=== PATIENT | male | born 1935 | race Caucasian/White ===

== ENCOUNTER → 2017-03-17 | Day surgery (SDC) | payer OTHER ==
[~2017-03-17] VITALS: Ht 182.9 cm; Wt 86.0 kg
[~2017-03-17] MED LIST: ACETAMINOPHEN 325 MG TAB PO PRN; AMX500 PO; ASPCH81; ASPI1CHW12 PO; ATROPINE SULFATE 0.1 MG/ML 5ML SYR IV PRN; CRS10 PO; DIAZEPAM 5MG TAB ONE; GLC/500 PO; HYDC25 PO; LISI1TAB3 PO; METO50TA16 PO; NXMUNK; SODIUM CHLORIDE 0.9% 1000ML 1,000 ML IV SCH; SODIUM CHLORIDE 0.9% 1000ML 250 ML IV PRN
[2017-03-17 07:40] VITALS: Ht 182.9 cm; Wt 86.0 kg
[2017-03-17 07:41] VITALS: BP 164/79; PULSE 57; TEMP 36.5; O2SAT 98
--- NOTE | 2017-03-17 09:44 | History & Physical Bridge Note ---
H&P Re-Evaluation Bridge Note: I have examined the patient, reviewed the History & Physical and in the interval since the performance of the History & Physical I have noted the following changes of clinical significance: No changes noted
--- NOTE | 2017-03-17 10:05 | [facility] Post Operative Brief Note ---
Preliminary Procedure Note Procedure Date Mar 17, 2017. Pre-Procedure Diagnosis Angina, Valvular Disease AUC Score 8 Post-Procedure Diagnosis Severe CAD Procedure(s) Performed Coronary Angiography, Left Heart Cath, Right Heart Cath, Aortography Band Bias Machine Operator Dr. Osmar Moss Records Technician(s) Tani Louis Estimated Blood Loss <20cc Medication(s) Lidocaine 1% (local infiltration) Preliminary Findings Left dominant coronary anatomy with heavy coronary calcification LM 80% distal stenosis LAD Type 3, 50-60% proximal moderate sized distal vessel Ramus Large with moderate irregularities LCX Dominant, 40% proximal RCA small non dominant Aortic Valve calcified with restricted leaflet mobility with 20 mm peak to peak gradient, AV area 1.2 cm2 Mildly dilated aortic root Normal right heart pressures, CO 4.4 L/M Recommendations CABG, valve replacement Specimens None Fluids (cc crystalloids) 148 Anesthesia Anxiolytic only Valium 5mg po, Benedryl 25 mg po Procedural Complication(s) None Disposition Handle Machine Operator Holding/Recovery
--- NOTE | 2017-03-17 10:25 | Discharge Instructions ---
Discharge Instructions Procedure Procedure Date: Mar 17, 2017. Reason for Visit: Aortic Valve Stenosis, Abnormal Ekg *Dr Ajay Markham. Discharge Discharge Date: Mar 17, 2017. Discharge Diagnosis: Left main coronary artery disease, Aortic valve stenosis Last Recorded Wt (Kilograms): 86 Anesthesia Post Anesthesia Instructions: If you have had General Anesthesia or IV Sedation: * Do not drive today. * Resume driving when surgeon permits. * Do not make important decisions or sign legal documents today. * Call surgeon for: 1. Temperature elevations greater than 101 degrees F. 2. Uncontrollable pain. 3. Excessive bleeding. 4. Persistent nausea and vomiting. 5. Medication intolerance (nausea, vomiting or rash). * For nausea and vomiting use only clear liquids such as: tea, soda, bouillon until nausea subsides, then gradually increase diet as tolerated. * If you have any concerns or questions, call your surgeon's office. If physician is unavailable and it is an emergency, call 911 or go to the nearest emergency room. Instructions Activity Recommendations: limitations as noted below Recommended Home Diet: resume previous diet Allergies: Coded Allergies: No Known Allergies (Unverified Allergy, Mild, 05/06/06) Follow Up Follow-up with: Dr Bello as scheduled [facility] Recommendations: Call your doctor if: * Temperature above 101 degrees * Pain not relieved by pain medicine ordered * There is increased drainage or redness from any incision * You have any unanswered questions or concerns. Your Doctors Instructions noted above were prepared by provider Osmar Moss. Patient Signature Section: Patient Instructions Signature Page Wicho Allan Patient (or Guardian) Signature/Date: I have read and understand the instructions given to me by my caregivers. Caregiver/RN/Doctor Signature/Date: The above-named patient and/or guardian has received patient instructions on this date. + Original Patient Signature Page (only) stays with chart. Please make copy for patient.
[2017-03-17 12:39] LABS: ISTAT ARTERIAL BLOOD GAS HCO3 26 meq/L (19-24); ISTAT ARTERIAL BLOOD GAS PCO2 45 mmHg (35-46); ISTAT ARTERIAL BLOOD GAS PO2 34 mmHg (80-95); ISTAT ARTERIAL BLOOD GAS pH 7.37 (7.35-7.45); ISTAT CARBON DIOXIDE 28 mEq/l (24-31)
[2017-03-17 12:39] LABS: ISTAT ARTERIAL BLOOD GAS HCO3 27 meq/L (19-24); ISTAT ARTERIAL BLOOD GAS PCO2 45 mmHg (35-46); ISTAT ARTERIAL BLOOD GAS PO2 34 mmHg (80-95); ISTAT ARTERIAL BLOOD GAS pH 7.39 (7.35-7.45); ISTAT CARBON DIOXIDE 29 mEq/l (24-31)
[2017-03-17 12:39] LABS: ISTAT ARTERIAL BLOOD GAS HCO3 23 meq/L (19-24); ISTAT ARTERIAL BLOOD GAS PCO2 37 mmHg (35-46); ISTAT ARTERIAL BLOOD GAS PO2 64 mmHg (80-95); ISTAT ARTERIAL BLOOD GAS pH 7.41 (7.35-7.45); ISTAT CARBON DIOXIDE 24 mEq/l (24-31)
--- NOTE | 2017-03-17 12:39 | CARDIAC CATH REPORT ---
REFERRING DOCTOR: Jame Bello DO. INDICATIONS: Exertional dyspnea, chest pressure, progressive aortic stenosis. PROCEDURE: Right and left heart catheterization, coronary and selective left subclavian angiography. BRIEF CARDIAC HISTORY: The patient is an 81-year-old male, who is followed after progressively worsening calcific aortic stenosis with recent echocardiogram suggesting borderline severe aortic stenosis with symptoms now developing of fatigue and exertional dyspnea class 2-3. No manifestations of congestive heart failure. No prior myocardial infarction. LV systolic function had been preserved. ACCESS: Right femoral artery, right femoral vein. CATHETERS: 7-Kosovan venous sheath, 7-Kosovan [place]-Pilar catheter, 5-Kosovan arterial sheath, 5-Kosovan angled pigtail catheter, 5-Kosovan 3DRC, 5-Kosovan angled pigtail catheter, 5-Kosovan JL4, 5-Kosovan JL5, and 5-Kosovan 3DRC. CONTRAST: Nonionic x54 mL. IV FLUIDS: Normal saline, 148 mL. Conscious sedation not administered with the patient receiving oral anxiolytics prior to the procedure. COMPLICATIONS: None. MEDICATIONS: The patient received local anesthesia at access site with 1% lidocaine. RESULTS: CORONARY ANGIOGRAPHY: LEFT MAIN: The left main is large in caliber and long. It trifurcates to give rise to the left anterior descending, a large ramus intermedius, and the left circumflex. Left coronary anatomy is left dominant. The left main has a focal area of 80% stenosis at its distal portion and extends into the origin of the left circumflex and left anterior descending. LEFT ANTERIOR DESCENDING: The left anterior descending is type 3 in distribution. It gives rise to a small septal branch in its proximal third, a modest caliber diagonal branch in its middle portion and it terminates beyond the apex as a type 3 vessel as the apical segments being thinned. The left anterior descending has diffuse luminal irregularities and there was calcification of all coronary anatomy with a long 50%-60% narrowing at its proximal segment. RAMUS INTERMEDIUS is a very large caliber vessel, which reaches to the apex and has moderate luminal irregularities, but no obstruction. LEFT CIRCUMFLEX: The left circumflex is a dominant vessel. It gives rise to a small obtuse marginal to posterolateral branches and a posterior descending artery. Within the left circumflex, there is discrete 40% narrowing at its origin and in its proximal segment with moderate irregularities in its distal vasculature. RIGHT CORONARY ARTERY: The right coronary artery is small and nondominant consisting of a single right ventricular branch. LEFT VENTRICULAR ANGIOGRAPHY: Not performed. Fluoroscopy of the aortic valve demonstrates moderate to heavy calcification of the aortic valve as well as coronary anatomy with restricted leaflet mobility. HEMODYNAMICS: Initial right heart pressures revealed low right atrial and right ventricular pressures with a mean right atrial pressure of 3, RV pressure of 20/3, PA pressure of 20/9. Pulmonary capillary wedge pressure of 5. Simultaneous LVEDP and pulmonary capillary wedge measurements revealed good correlation, EDP and wedge of 5. No transmitral valve gradient. Cardiac output by thermal dilution was 4.3 L per minute. O2 saturations revealed a right atrial saturation of 63%, PA saturation was 64%, right femoral artery saturation of 92%. Initial aortic root pressure was 124/48 with a mean of 76, LV pressure was 137/5, LVEDP of 5. On pullback to the aortic root, there is a proximally 20 mm [id number] aortic valve gradient, but calculating to an aortic valve area consistent with aortic stenosis of area of 1.2 sq cm. FINAL IMPRESSIONS: 1. Left dominant coronary anatomy with diffuse calcification in the proximal coronary vasculature. 2. Severe coronary artery disease with 80% distal left main stenosis compromising left coronary anatomy consisting of a moderate-sized type 3 left anterior descending, a large ramus intermedius, and a dominant left circumflex. 3. Calcific aortic valve disease with borderline severe aortic stenosis, measured aortic valve area of 1.2 sq cm. 4. Mild aortic root dilatation. 5. Widely patent left internal mammary artery on selective left subclavian angiography. 6. Normal right heart pressures. RECOMMENDATIONS: The patient is to be referred for surgical revascularization and aortic valve replacement. MERCEDSE
[2017-03-17 13:45] VITALS: BP 177/75; PULSE 63; O2SAT 97
--- NOTE | 2017-03-25 11:51 | EDITING REQUIRED CODING QUERY ---
SUPPORTING DIAGNOSIS NEEDED A supporting diagnosis is required for the test/procedure performed on this patient in order for us to be reimbursed by the patient's insurance. Please provide a supporting diagnosis for the following test/procedure listed below next to the test name along with your signature. *If there is no additional diagnosis for this patient that would support the following test/procedure please document that below next to the test/procedure. Test(s)/Procedure(s) that require a supporting diagnosis: * THOR AORTOGRAPHY DIAGNOSIS: Provider Signature: Date: Thank you Desiree Tavarez [employer] Once completed, please kindly fax back to [phone] For questions please call [phone]
== END | disposition home or self-care (01) ==
LOC: C.CATH 06:17
PROVIDERS: ATTEND Specialist
DX: R06.00 Dyspnea, unspecified (principal); R07.89 Other chest pain; I35.0 Nonrheumatic aortic (valve) stenosis; E78.5 Hyperlipidemia, unspecified; I10 Essential (primary) hypertension; Z87.891 Personal history of nicotine dependence; Z79.899 Other long term (current) drug therapy; Z98.890 Other specified postprocedural states; Z79.82 Long term (current) use of aspirin; Z82.49 Family history of ischemic heart disease and other diseases of the circulatory system